=== PATIENT | male | born 1975 | race Hispanic/Latino ===

== ENCOUNTER → 2022-02-08 | Outpatient (CLI) | payer BC, OTHER ==
[~2022-02-08] MED LIST: GADOTERATE MEGLUMINE 10 MMOL/20 ML VIAL IV ONE
== END | disposition home or self-care (01) ==
LOC: RAH 12:44
PROVIDERS: ATTEND Otolaryngology Otology & Neurotology
DX: H81.4 Vertigo of central origin (principal); Z98.890 Other specified postprocedural states
CPT/HCPCS: 70553; A9575